=== PATIENT | female | born 1990 | race Caucasian/White ===

== ENCOUNTER 2019-01-03 07:38 | Emergency (ER) | payer OTHER ==
[~2019-01-03] VITALS: Ht 160 cm; Wt 59.0 kg
[2019-01-03] MEDS ORDERED: VENTOLIN HFA 1818 GM INH (07:44)
[2019-01-03] MEDS ORDERED: UNICOMPLEX M TA1 TA1 PO (07:44)
[2019-01-03] MEDS ORDERED: PEPCID20 MG PO (08:44)
[2019-01-03] MEDS ORDERED: BENADRYL25 MG PO (08:44)
[2019-01-03] MEDS ORDERED: PREDNISONE 10 M10 MG PO (08:44)
[2019-01-03 09:02] VITALS: BP 118/81
== END 2019-01-03 09:02 | disposition home or self-care (01) ==
LOC: ER 07:38
DX: R51 Headache (principal); T78.1XXA Other adverse food reactions, not elsewhere classified, initial encounter; Z90.89 Acquired absence of other organs; Z90.49 Acquired absence of other specified parts of digestive tract; Z88.1 Allergy status to other antibiotic agents; Z91.018 Allergy to other foods

== ENCOUNTER 2019-02-13 15:57 | Emergency (ER) | payer OTHER ==
[~2019-02-13] VITALS: Ht 160 cm; Wt 59.0 kg
[~2019-02-13 15:57] MED LIST: BENADRYL25 MG PO; PEPCID20 MG PO; PREDNISONE 10 M10 MG PO; UNICOMPLEX M TA1 TA1 PO; VENTOLIN HFA 1818 GM INH
[2019-02-13] MEDS ORDERED: ZOLOFT50 M1 PO (16:33)
[2019-02-13 16:50] LABS: URINE BILIRUBIN NEGATIVE (Negative); URINE BLOOD NEGATIVE (Negative); URINE CLARITY CLEAR; URINE COLOR YELLOW; URINE GLUCOSE-RANDOM* NEGATIVE (Negative); URINE KETONES NEGATIVE (Negative); URINE LEUKOCYTES-REFLEX NEGATIVE (Negative); URINE NITRITE-REFLEX NEGATIVE (Negative); URINE PROTEIN (DIPSTICK) NEGATIVE (Negative); URINE UROBILINOGEN 0.2 E.U./dl (0.2-1.0)
[2019-02-13 18:24] VITALS: BP 111/89
== END 2019-02-13 18:29 | disposition home or self-care (01) ==
LOC: ER 15:57
PROVIDERS: Physician Assistant
DX: N93.9 Abnormal uterine and vaginal bleeding, unspecified (principal); Z90.89 Acquired absence of other organs; Z90.49 Acquired absence of other specified parts of digestive tract; Z88.1 Allergy status to other antibiotic agents; Z91.018 Allergy to other foods